=== PATIENT | female | born 1970 | race Caucasian/White ===

== ENCOUNTER 2021-10-03 06:33 | Day surgery (SDC) | payer OTHER ==
[2021-10-03] MEDS ORDERED: Ringers Lactate 1,000 ML IV ONE (07:07)
[2021-10-03] MEDS ORDERED: MIDAZOLAM HCL 2 MG/2 ML INJ ONE (07:13)
[2021-10-03] MEDS ORDERED: FENTANYL CITR 100 MCG/2 ML ONE (07:14)
[2021-10-03] MEDS ORDERED: ROCURONIUM 50 MG/5 ML VIAL IV ONE (07:14)
[2021-10-03] MEDS ORDERED: propofoL 200 MG/20 ML VIAL IV ONE (07:14)
[2021-10-03] MEDS ORDERED: GLYCOPYRROLATE 0.2 MG/ML SYR ONE ×3 (07:14→08:59)
[2021-10-03] MEDS ORDERED: LIDOCAINE 1% MPF 2 ML AMPULE ONE (07:14)
[2021-10-03] MEDS ORDERED: LIDOCAINE 1% W/EPI 1:100,000 MDV 20 ML VIAL ONE (07:33)
[2021-10-03] MEDS ORDERED: ONDANSETRON 4 MG/2 ML VIAL ONE (08:34)
[2021-10-03] MEDS ORDERED: dexAMETHasone 10 MG/ML VIAL ONE (08:34)
[2021-10-03] MEDS ORDERED: KETOROLAC 30 MG/ML INJ ONE (08:34)
[2021-10-03] MEDS ORDERED: MEPERIDINE HCL 25 MG/ML SYR IM PRN (08:50)
[2021-10-03] MEDS ORDERED: IBUPROFEN 200 MG TAB PO PRN (08:50)
[2021-10-03] MEDS ORDERED: PROMETHAZINE INJ 25 MG/ML AMP IV PRN (08:50)
--- NOTE | 2021-10-03 08:55 | P.BOP ---
Preoperative diagnosis: nenorrhagia, leiomyomatax2, endometrial polyp Postoperative diagnosis: same Primary procedure: Operative Hysteroscopy, myomectomy x2, polypectomy x1 Variety Saw Operator: NONE,NONE Estimated blood loss: min Specimen: fibroids, polyp and EMC Findings: post 4cm, left lat wall 1cm leiomyoma,fundal polyp-all removed completely Anesthesia: General Complications: None Fluids & blood products: deficit 425ml NS Transferred to: Recovery Room
[2021-10-03] MEDS ORDERED: NEOSTIGMINE 1 MG/ML -5 ML ONE (08:58)
[2021-10-03] MEDS ORDERED: HOME MED 1 EA UNK (L.Acidoph,Paracasei, B.Lactis [Probiotic] Capsule) PO SCH (09:00)
[2021-10-03] MEDS ORDERED: DOCUSATE NA 100 MG CAP PO SCH (09:00)
[2021-10-03] MEDS ORDERED: VITAMIN D 5,000 UNIT CAP PO SCH (09:00)
[2021-10-03] MEDS ORDERED: FERROUS SULFATE 325 MG TAB PO SCH (09:00)
[2021-10-03] MEDS ORDERED: HOME MED 1 EA UNK (Multivitamin [Multivitamin] Tablet) PO SCH (09:00)
--- NOTE | 2021-10-03 09:40 | OP ---
Date of Procedure: 10/03/2021 Surgeon: Gaby Lopez MD Preoperative Diagnoses: Menorrhagia, leiomyomata, endometrial polyp. Postoperative Diagnoses: Menorrhagia, leiomyomata, endometrial polyp. Procedure Performed: Operative hysteroscopy, myomectomy x2, polypectomy x1. Anesthesia: General with LMA. Specimens: Fibroids, polyp, endometrial curettings. Complications: No complications. Drains: No drains. Patient's Condition: Stable. Findings: Posterior 4 cm fibroid, left lateral wall 1 cm fibroid, and fundal polyp were all complete ly removed. Fluid deficit was 425 mL of normal saline. Device Used: [employer] MyoSure REACH. Procedure In Detail: After informed consent was verified, patient was taken back to the OR. In the office, she had a hysteroscopy where we found fibroids and a polyp and workup for her menorrhagia, so she was brought to the OR for removal. She was taken back to OR, placed in supine fashion on the op erating table. General anesthesia was given. Placed in dorsal lithotomy position. Speculum placed to expose the cervix and grasping the anterior lip with an Allis clamp. Operative hysteroscope was e ntered through the cervical canal into the uterine cavity under direct visualization. The fibroids a nd polyp were noted in the office, posterior wall fibroid seemed about 4 cm, lateral about 1-2 cm; po lyp was much smaller. The endometrium appeared to be unremarkable. The MyoSure REACH device was taken, the large and using normal saline distention medium after priming the device, this was used to cut out the fibroids carefully all the way to the bottom and then, the polyp was removed as well and endometrial curettings were performed with the same device. All instru ments were removed. Instrument and sponge counts were correct at the end of the case. There was kwabena sk bright red blood right after the device was removed, but no further bleeding was noted to any sign ificant amount. EBL was minimal. She was recovered from anesthesia and taken to PACU in stable cond ition. Fluid deficit 425. SK/MODL Voice ID: [id number] Report ID: [id number]
[2021-10-03 09:59] VITALS: BP 164/89; TEMP 97.5; O2SAT 98
[2021-10-03] MEDS ORDERED: HOME MED 1 EA UNK (Omeprazole [Prilosec] 40 MG Capsule.Dr) PO SCH (21:00)
[2021-10-04] MEDS ORDERED: LEVOTHYROXINE SOD 0.1 MG TAB PO SCH (06:00)
== END 2021-10-03 10:26 | disposition home or self-care (01) ==
LOC: OR 06:33
PROVIDERS: ATTEND Obstetrics & Gynecology
PROC: 0UB97ZX Excision of Uterus, Via Natural or Artificial Opening, Diagnostic (ICD-10-PCS; 2021-10-03)
PROC: 0UJD8ZZ Inspection of Uterus and Cervix, Via Natural or Artificial Opening Endoscopic (ICD-10-PCS; 2021-10-03)
PROC: 0UB98ZZ Excision of Uterus, Via Natural or Artificial Opening Endoscopic (ICD-10-PCS; principal; 2021-10-03 07:30)
DX: N92.1 Excessive and frequent menstruation with irregular cycle (principal); D50.0 Iron deficiency anemia secondary to blood loss (chronic); Z80.0 Family history of malignant neoplasm of digestive organs; E03.9 Hypothyroidism, unspecified; D25.9 Leiomyoma of uterus, unspecified; N84.0 Polyp of corpus uteri; Z20.822 Contact with and (suspected) exposure to COVID-19
CPT/HCPCS: 81025; 88305; 58561; 58558; U0003; J2704; J2250; J3010; J1100; J2710; J7120; J2405

== ENCOUNTER 2021-11-08 05:16 | Day surgery (SDC) | payer OTHER ==
[2021-11-06 11:55] LABS: Absolute Lymphocytes (CBC) 1.4 K/uL (0.7-4.9); Hematocrit 41.4 % (36.0-45.0); Lymphocytes % 25.8 % (15.3-44.8); MPV 8.5 fL (7.6-11.3); RBC Red Blood Cell Count 5.49 M/uL (3.86-4.86)
[2021-11-06 12:19] LABS: BUN Blood Urea Nitrogen 6 mg/dL (7-18); Bicarbonate 25 mmol/L (21-32); Glucose Level 101 mg/dL (74-106); Sodium Level 138 mmol/L (136-145)
[2021-11-06 12:21] LABS: Potassium 3.8 mmol/L (3.5-5.1)
--- NOTE | 2021-11-06 13:03 | EKG ---
Test Date: 2021-11-06 Test Time: 11:23:37 Screen Room Operator: ANGÉLICA MEASUREMENT RESULTS: Intervals: Rate: 63 SC: 144 QRSD: 80 QT: 410 QTc: 419 [place]: P: 49 SC: 144 QRS: 50 T: 46 INTERPRETIVE STATEMENTS: Normal sinus rhythm Normal ECG Compared to ECG 10/18/2010 07:27:08 No significant changes Electronically Signed On 11-06-21 13:02:41 PATTERN MARKING SUPERVISOR by Enrique Monroe
[2021-11-06 13:12] LABS: Platelet Estimate ADEQ; White Blood Cell Scan OK (OK)
[2021-11-06 13:13] LABS: Anisocytosis 1+; Blood Morphology Comment NOTED (NOT SEEN); Platelets, Giant PRESENT
--- NOTE | 2021-11-06 13:43 | RAD REPORT ---
EXAM DESCRIPTION: RAD - Chest Pa And Lat (2 Views) - 11/06/2021 11:52 am CLINICAL HISTORY: Pre Op pending mastectomy COMPARISON: October 2010 TECHNIQUE: Frontal and lateral views of the chest were obtained. FINDINGS: The lungs are clear. Interstitial pattern is not significantly different from the compari son study. Heart size is normal and central vasculature is within normal limits. No pleural effusion or pneumothorax seen. No acute bony finding noted. No aortic abnormality. No significant change f rom comparison study. IMPRESSION: No acute cardiopulmonary process.
[2021-11-08] MEDS ORDERED: CEFAZOLIN/NS 1gm 1 GM/50 ML BAG ONE (05:36)
[2021-11-08] MEDS ORDERED: SCOPOLAMINE HYDROBROMIDE PATCH TD ONE ×2 (05:37→05:40)
[2021-11-08] MEDS ORDERED: dexAMETHasone 10 MG/ML VIAL ONE ×2 (06:04→08:23)
[2021-11-08] MEDS ORDERED: LIDOCAINE 1% MPF 5 ML VIAL ONE (06:04)
[2021-11-08] MEDS ORDERED: FENTANYL CITR 100 MCG/2 ML ONE (06:04)
[2021-11-08] MEDS ORDERED: MIDAZOLAM HCL 2 MG/2 ML INJ ONE (06:05)
[2021-11-08] MEDS ORDERED: SODIUM BICARB 50 MEQ/50ML VIAL ONE (06:05)
[2021-11-08] MEDS ORDERED: ROPIVACAINE HCL 40 ML ONE (06:06)
[2021-11-08] MEDS ORDERED: ROPLVACAINE HCL 40 ML ONE (06:06)
[2021-11-08] MEDS ORDERED: propofoL 200 MG/20 ML VIAL IV ONE (08:23)
[2021-11-08] MEDS ORDERED: ONDANSETRON 4 MG/2 ML VIAL ONE (08:23)
[2021-11-08] MEDS ORDERED: KETOROLAC 30 MG/ML INJ ONE (08:23)
[2021-11-08] MEDS ORDERED: LIDOCAINE 2% MPF 5 ML VIAL ONE (08:23)
[2021-11-08] MEDS ORDERED: KETAMINE HCL 500 MG/5 ML VIAL ONE ×2 (08:23→08:25)
[2021-11-08] MEDS ORDERED: ROCURONIUM 50 MG/5 ML VIAL IV ONE (08:23)
[2021-11-08] MEDS ORDERED: METHYLENE BLUE 0.5% 10 ML AMP ONE (08:39)
[2021-11-08] MEDS ORDERED: NA CHLORIDE 0.9% 50 ML ONE (09:24)
[2021-11-08] MEDS ORDERED: MORPHINE 10 MG/ML VIAL ONE (09:24)
--- NOTE | 2021-11-08 09:27 | RAD REPORT ---
EXAM DESCRIPTION: NM - Lymphoscintigraphy - 11/08/2021 7:49 am CLINICAL HISTORY: BREST CA Preoperative right breast lymphoscintigraphy. COMPARISON: Chest Pa And Lat (2 Views) dated 11/06/2021 FINDINGS: Two injections of 150 uCi lymphoseek was performed in the right breast. Immediate scintigr aphic shows good localization of radiopharmaceutical.
[2021-11-08] MEDS ORDERED: CEFAZOLIN SODIUM 1 GM/VIAL ONE (10:02)
[2021-11-08] MEDS ORDERED: VECURONIUM 10 MG/VIAL IV ONE (10:22)
[2021-11-08] MEDS ORDERED: Phenylephrine HCl 10 MG/ML 1 ML VIAL ONE (10:42)
[2021-11-08] MEDS ORDERED: EPHEDRINE SULF 50 MG/ML VIAL ONE (10:46)
--- NOTE | 2021-11-08 10:53 | RAD REPORT ---
EXAM DESCRIPTION: US - Brst,Preop NL Wire Init w/Guid - 11/08/2021 8:47 am CLINICAL HISTORY: NDL LOC Breast carcinoma COMPARISON: No comparisons FINDINGS: Preoperative diagnosis: Right breast carcinoma. Post operative diagnosis: Same. Conscious Sedation: None Fluoroscopy time: None Contrast used: None Estimated blood loss: Minimal The right breast was prepped and draped in the usual sterile fashion. 1% lidocaine was infiltrated in to the subcutaneous tissues for local anesthesia. Angie's preoperative wire was placed under ultrasou nd guidance with the tip adjacent to laterally located post biopsy clip. Patient was then transferred to the operating theater. There were no complications. Case was discussed with Dr. Montoya. IMPRESSION: Successful ultrasound-guided right breast preoperative wire localization.
[2021-11-08] MEDS ORDERED: Mastisol Adhesive Liq ONE (11:01)
[2021-11-08] MEDS ORDERED: ESMOLOL HCL 10 ML IV ONE (11:18)
[2021-11-08] MEDS: Ringers Lactate 1,000 ML IV ONE ×2 (11:40→12:15)
[2021-11-08] MEDS ORDERED: NEOSTIGMINE 1 MG/ML -5 ML ONE (11:54)
[2021-11-08] MEDS ORDERED: GLYCOPYRROLATE 0.2 MG/ML SYR ONE (11:54)
[2021-11-08] MEDS ORDERED: Ringers Lactate 1,000 ML IV ONE (12:19)
[2021-11-08 13:06] VITALS: TEMP 97.7
[2021-11-08] MEDS ORDERED: HYDROCODONE/APAP 7.5/325 MG TAB ONE (13:51)
[2021-11-08 15:20] VITALS: BP 140/80; O2SAT 95
--- NOTE | 2021-11-08 16:02 | OP ---
Date of Procedure: 11/08/2021 Surgeon: Luther Montoya MD Heavy Rail Train Operator: LISA Feliciano Preoperative Diagnosis: Right breast cancer. Postoperative Diagnosis: Right breast cancer. Procedures: 1.Needle localization and right breast mastectomy. 2.[place] node biopsy on the right side. 3.Left breast mastectomy. Estimated Blood Loss: Minimal. Specimens: [place] node which was negative for metastatic disease, right breast, margins were free, and the left breast. Findings: As above. Anesthesia: General. Complications: None. Drains: IRASEMA drain #10 flat x2. Disposition: The patient tolerated the procedure in stable condition and taken to Recovery in good g eneral condition. Description Of Procedure: The patient was brought to the OR and placed in supine position. General anesthesia begun. The patient was prepped and draped in the usual sterile fashion after methylene bl ue was injected in the sterile condition in the right nipple-areolar complex. The patient previously had a needle localization done as well. Subsequently, a counting device was used to identify the se ntinel node in the right axilla, there were 2 of them. They were both excised. Vascular clips were used via 3 cm incision in the deep subcutaneous tissue and axillary fat pad, and 2 blue lymph nodes w ere identified and then sent to Pathology for frozen section, revealed no evidence of metastatic dise ase. This wound was irrigated. Bleeding was controlled with cautery, and then 3-0 chromic was used to approximate the subcutaneous tissue and close the skin. Then, an ellipse of skin approximately 20 x 10 cm to include the nipple-areolar complex as well as the needle localization area was performed, subcutaneous tissue divided, and then flaps were created superiorly to the clavicle, medially to the sternal border, inferiorly to the insertion of the rectus abdominis muscle, laterally to the anterio r border of the latissimus dorsi and all breast tissue off the pectoralis fascia was removed. Blood vessels were tied with 2-0 silk ties as needed, and cautery was used to control bleeding as well. entire specimen was removed and sent to Pathology, and the general area where the clip was identifi ed and was surrounded by normal breast tissue. Subsequently, this wound was irrigated. Bleeding was controlled with cautery. Rafa-Miller drain #10 flat was placed and secured with 3-0 nylon, and th en 2-0 chromic and 3-0 chromic were used in a sequential fashion to close the subcutaneous tissue and skin, and then sterile dressing was applied, and then the exact same operation of the mastectomy rocio le was done via similar incision on the left side, and then both sides had Rafa Miller drain in and secured, and then sterile dressing was applied. The patient was awakened and taken to Recovery in g ood general condition. Discharge Note: The patient will go to Day Surgery and home when stable. Disposition: Home. Condition: Stable. Discharge Instructions: Resume home medications and diet. Activity as tolerated. No heavy lifting. Keep dressing clean and dry. Sponge bathe only. Record IRASEMA output q.12 hours, bring records to off ice. Teach the patient and family strip tubing p.r.n.. Tylenol No.3 one tablet p.o. q.4 p.r.n. pain, Kefl ex 500 mg p.o. q.6. /MODL Voice ID: [id number] Report ID: [id number]
== END 2021-11-08 15:21 | disposition home or self-care (01) ==
LOC: OR 05:16
PROVIDERS: ATTEND Surgery
PROC: 07T50ZZ Resection of Right Axillary Lymphatic, Open Approach (ICD-10-PCS; 2021-11-08)
PROC: 0HTV0ZZ Resection of Bilateral Breast, Open Approach (ICD-10-PCS; principal; 2021-11-08 08:30)
DX: D05.11 Intraductal carcinoma in situ of right breast (principal); Z20.822 Contact with and (suspected) exposure to COVID-19
CPT/HCPCS: 19307; 38525; 93005; 85025; 80048; 36415; 81025; 88307; 71046; 19285; 78195; U0003; J2704; J2370; J2250; J3010; J1100 ×2; J2795; J2710; J0690 ×2; J7120 ×2; J2405; 88305